=== PATIENT | male | born 1960 | race Caucasian/White ===

== ENCOUNTER 2017-12-07 20:09 | Emergency (ER) | payer OTHER, SELFPAY ==
[~2017-12-07 20:09] MED LIST: ISOVUE-370 76%-LOCM 1 ML ONE
--- NOTE | 2017-12-07 20:46 | RAD ---
PORTABLE CHEST ONE VIEW: 12/07/17 at 7:30 p.m. HISTORY: Syncope, abdominal pain. FINDINGS: The heart size is borderline. There is elevation of the right hemidiaphragm. No lobar consolidation, pneumothoraces, denise pulmonary edema or pleural effusions are seen. IMPRESSION: No acute process. POS: [facility]
[2017-12-07 20:55] LABS: #Basophils 0.1 thou/uL (0.0-0.2); #Eosinphils 0.1 thou/uL (0.0-0.7); #Lymphocytes 1.1 thou/uL (1.20-3.40); #Monocytes 0.8 thou/uL (0.11-0.59); #Neutrophils 7.2 thou/uL (1.40-6.50); %Basophils 0.6 % (0.0-1.0); %Eosinophils 0.6 % (0.0-10.0); %Lymphocytes 12.4 % (21.0-51.0); %Monocytes 8.4 % (0.0-10.0); %Neutrophils 78.1 % (42.0-75.0); Hemoglobin 16.2 g/dL (14.0-18.0); Mean Corpuscular HGB CONC 34.8 g/dL (32.0-36.0); Mean Corpuscular Hemoglobin 31.4 pg (27.0-31.0); Mean Corpuscular Volume 90.3 fL (78.0-98.0); Mean Platelet Volume 8.3 fL (7.4-10.4); Platelet Count 174 thou/uL (130-400); RBC Distribution Width 12.4 % (11.5-14.5); Red Blood Cell (RBC) Count 5.16 mill/uL (4.70-6.10); White Blood Cell (WBC) Count 9.2 thou/uL (4.8-10.8)
[2017-12-07 21:07] LABS: Bilirubin Negative (Negative); Blood, Urine Negative (Negative); Clarity CLEAR (Clear); Glucose, Urine (Dipstick) Negative (Negative); Leukocyte Negative (Negative); Nitrite Negative (Negative); Protein, Urine (Dipstick) Negative (Neg-Trace); Specific Gravity, Urine 1.021 (1.002-1.036); Urobilinogen 0.2 mg/dL (0.2-1.0); pH, Urine 5.5 (5.0-9.0)
[2017-12-07 21:17] LABS: ALT (SGPT) 15 U/L (8-55); AST (SGOT) 15 U/L (5-34); Albumin 3.9 g/dL (3.5-5.0); Alkaline Phosphatase 54 U/L (40-150); Anion Gap 14 mmol/L (10-20); BUN (Urea Nitrogen) 15 mg/dL (8.4-25.7); Bilirubin, Total 0.6 mg/dL (0.2-1.2); Calc. Creatinine Clearance 0 mL/min (70-130); Calcium 8.8 mg/dL (7.8-10.44); Carbon Dioxide 21 mmol/L (22-29); Chloride 103 mmol/L (98-107); Estimated GFR-MDRD 74; Globulin 2.6 g/dL (2.4-3.5); Glucose 110 mg/dL (70-105); Lipase 29 U/L (8-78); Potassium 3.8 mmol/L (3.5-5.1); Protein, Total 6.5 g/dL (6.0-8.3); Sodium 134 mmol/L (136-145)
[2017-12-07 21:20] LABS: CKMB 1.1 ng/mL (0-6.6); Troponin I Less than 0.010 ng/mL (< 0.028)
--- NOTE | 2017-12-07 22:23 | CT ---
CT ABDOMEN AND PELVIS WITH IV CONTRAST 12/07/17 HISTORY: Lower abdominal pain which started one day ago. Diarrhea. COMPARISON: 12/19/11. FINDINGS: Vascular calcifications are seen in the coronary arteries as well as involving the abdominal aorta an d iliac arteries. Bibasilar atelectasis is present. The liver demonstrates diminished attenuation and while precontrast images were not performed, findin gs are likely attributable to fatty infiltration. The spleen, pancreas, bilateral adrenal glands, kidneys, and decompressed urinary bladder demonstrate a normal CT appearance. There is colonic diverticulosis involving the descending and sigmoid colon, also present on the prior exam. There are no CT findings to suggest diverticulitis. Portions of the colon are decompressed, bu t there does appear to be colonic wall thickening involving as well as the descending and sigmoid col on and while thickening in these regions could be related to the colonic diverticula, colitis whether infectious or inflammatory in etiology is a possibility especially involving the distal transverse c olon. No significant pericolonic inflammatory changes are seen. There is no fluid collection seen to suggest an abscess. Loops of small bowel are normal in caliber. The appendix is visualized and also normal in caliber. There has been no other interval change from the prior exam. IMPRESSION: 1. Colonic wall thickening predominantly involving the distal transverse colon and at the spleni c flexure. Findings could be related to colitis which may be infectious or inflammatory in etiology. There is also suggestion of mild thickening involving the ascending colon. 2. Colonic diverticulosis. 3. No CT evidence of appendicitis. 4. Mild fatty infiltration of the liver. 5. Small hiatal hernia. POS: [facility]
== END 2017-12-08 00:03 | disposition home or self-care (01) ==
LOC: ERS 20:09
DX: K52.9 Noninfective gastroenteritis and colitis, unspecified (principal)
CPT/HCPCS: 36416; 71045; 74177; 80053; 81003; 82553; 83690; 84484; 85025; 93005; 96361; 96374; 96376; J2270

== ENCOUNTER 2019-08-31 09:34 | Emergency (ER) | payer SELFPAY ==
--- NOTE | 2019-08-31 10:03 | RAD ---
RADIOGRAPH CHEST 1 VIEW: DATE: 08/31/2019 HISTORY: 58-year-old male with chest pain FINDINGS: There are no airspace densities, pulmonary edema, pneumothorax, or cardiomegaly. The lateral costophr enic angles are sharp. IMPRESSION: No acute cardiopulmonary findings.
[2019-08-31 10:15] LABS: #Eosinphils 0.1 thou/uL (0.0-0.7); #Monocytes 0.6 thou/uL (0.11-0.59); #Neutrophils 8.7 thou/uL (1.40-6.50); %Basophils 0.2 % (0.0-1.0); %Eosinophils 0.9 % (0.0-10.0); %Lymphocytes 9.8 % (21.0-51.0); %Monocytes 5.6 % (0.0-10.0); %Neutrophils 83.5 % (42.0-75.0); Hemoglobin 16.2 g/dL (14.0-18.0); Mean Corpuscular HGB CONC 34.1 g/dL (32.0-36.0); Mean Corpuscular Hemoglobin 31.8 pg (27.0-31.0); Mean Corpuscular Volume 93.3 fL (78.0-98.0); Mean Platelet Volume 8.9 fL (7.4-10.4); Platelet Count 163 thou/uL (130-400); RBC Distribution Width 12.3 % (11.5-14.5); White Blood Cell (WBC) Count 10.5 thou/uL (4.8-10.8)
[2019-08-31 10:36] LABS: ALT (SGPT) 29 U/L (8-55); AST (SGOT) 19 U/L (5-34); Albumin 4.1 g/dL (3.5-5.0); Alkaline Phosphatase 64 U/L (40-110); Anion Gap 12 mmol/L (10-20); BUN (Urea Nitrogen) 15 mg/dL (8.4-25.7); Bilirubin, Total 0.5 mg/dL (0.2-1.2); Calc. Creatinine Clearance 0 mL/min (70-130); Calcium 9.4 mg/dL (7.8-10.44); Carbon Dioxide 23 mmol/L (22-29); Chloride 105 mmol/L (98-107); Estimated GFR-MDRD 75; Globulin 2.8 g/dL (2.4-3.5); Glucose 113 mg/dL (70-105); Potassium 4.1 mmol/L (3.5-5.1); Protein, Total 6.9 g/dL (6.0-8.3); Sodium 136 mmol/L (136-145)
[2019-08-31] MEDS ORDERED: Ketorolac Tromethamine 30 MG/ML VIAL ONE (11:22)
[2019-08-31 11:41] LABS: Bilirubin Negative (Negative); Blood, Urine Negative (Negative); Clarity Clear (Clear); Glucose, Urine (Dipstick) Normal (Negative); Leukocyte Negative Leu/uL (Negative); Nitrite Negative (Negative); Protein, Urine (Dipstick) Negative (Neg-Trace); Urobilinogen Normal mg/dL (Less than 2)
[2019-08-31] MEDS ORDERED: Ciprofloxacin 500 MG TAB ONE (11:58)
[2019-08-31] MEDS ORDERED: metroNIDAZOLE 250 MG TAB ONE (11:58)
== END 2019-08-31 12:54 | disposition home or self-care (01) ==
LOC: ERS 09:34
DX: K57.92 Diverticulitis of intestine, part unspecified, without perforation or abscess without bleeding (principal)
CPT/HCPCS: 36415; 71045; 80053; 81003; 83605; 85025; 87040; 87086; 96374; J1885